=== PATIENT | female | born 1995 | race Caucasian/White ===

== ENCOUNTER 2017-10-12 05:33 | Inpatient (IN) | payer MEDICAID ==
[2017-10-12] MEDS ORDERED: Butorphanol 1 MG/ML SDV IVPUSH PRN (06:00)
[2017-10-12] MEDS ORDERED: Sodium Chloride 0.9% 10 ML Syringe FLUSH PRN (06:00)
[2017-10-12] MEDS ORDERED: Lidocaine 1% 50 ML MDV INJECT PRN (06:00)
[2017-10-12] MEDS ORDERED: Misoprostol 200 MCG Tab PO PRN (06:00)
[2017-10-12] MEDS ORDERED: Carboprost Tromethamine 250 MCG/1 ML Amp IM PRN (06:00)
[2017-10-12] MEDS ORDERED: Nalbuphine 10 MG/1 ML Vial IVPUSH PRN (06:00)
[2017-10-12] MEDS ORDERED: Tranexamic Acid 1,000 MG in Sodium Chloride 0.9% 100 ML IV PRN (06:00)
[2017-10-12] MEDS ORDERED: Water For Irrigation,Sterile 1,000 ML Container IRR PRN (06:00)
[2017-10-12] MEDS ORDERED: Sodium Chloride 0.9% 2.5 ML Syringe FLUSH PRN (06:00)
[2017-10-12] MEDS ORDERED: Methylergonovine 0.2 MG/1 ML Amp IM PRN (06:00)
[2017-10-12] MEDS ORDERED: Oxytocin/0.9 % Sodium Chloride 30 UNIT/500 ML BAG IV SCH (06:00)
[2017-10-12] MEDS ORDERED: Lactated Ringers 1,000 ML IV SCH (06:00)
[2017-10-12] MEDS ORDERED: Ropivacaine 0.2% 2 MG/ML 20 ML SDV ONE (06:51)
--- NOTE | 2017-10-12 07:31 | PCM.PREANE ---
Preanesthetic Assessment - Procedure Proposed Procedure: labor epidural - Anesthesia/Transfusion/Family Hx Anesthesia History: No Prior Anesthesia (except 3 previous epidurals, no GA) Family History of Anesthesia Reaction: No Transfusion History: No Prior Transfusion(s) - Review of Systems Other: Reports: None - Physical Assessment Height: 5 ft 6 in Weight: 73.028 kg ASA Class: 2 Mental Status: Alert & Oriented x3 Airway Class: Mallampati = 1 Dentition: Reports: Normal Dentition Thyro-Mental Finger Breadths: 3 Mouth Opening Finger Breadths: 3 ROM/Head Extension: Full - Lab Values: Laboratory Last Values WBC 12.13 K/uL (4.0-11.0) H 10/12/17 06:17 RBC 3.95 M/uL (4.30-5.90) L 10/12/17 06:17 Hgb 11.5 g/dL (12.0-16.0) L 10/12/17 06:17 Hct 34.1 % (36.0-46.0) L 10/12/17 06:17 MCV 86.3 fL (80.0-98.0) 10/12/17 06:17 MCH 29.1 pg (27.0-32.0) 10/12/17 06:17 MCHC 33.7 g/dL (31.0-37.0) 10/12/17 06:17 RDW Std Deviation 44.0 fl (28.0-62.0) 10/12/17 06:17 RDW Coeff of Peg 14 % (11.0-15.0) 10/12/17 06:17 Plt Count 160 K/uL (150-400) 10/12/17 06:17 MPV 10.30 fL (7.40-12.00) 10/12/17 06:17 Nucleated RBC % 0.0 /100WBC 10/12/17 06:17 Nucleated RBCs # 0 K/uL 10/12/17 06:17 Blood Type O NEGATIVE 10/12/17 06:17 Antibody Screen NEGATIVE 10/12/17 06:17 - Allergies Allergies/Adverse Reactions: Allergies Allergy/AdvReac Type Severity Reaction Status Date / Time No Known Allergies Allergy Verified 05/28/14 13:55 - Blood Blood Available: Yes Product(s) Available: PRBC - Acknowledgements Anesthesia Type Planned: Epidural Pt an Appropriate Candidate for the Planned Anesthesia: Yes Alternatives and Risks of Anesthesia Discussed w Pt/Guardian: Yes Pt/Guardian Understands and Agrees with Anesthesia Plan: Yes PreAnesthesia Questionnaire - Past Health History Medical/Surgical History: Denies 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 [No Known Home Meds] 05/28/14 [History] - CURRENT (IN HOUSE) MEDS Current Meds: Current Medications Butorphanol Tartrate (Stadol) 1 mg IVPUSH Q1H PRN PRN Reason: Pain Carboprost Tromethamine (Hemabate Ds) 250 mcg IM ASDIRECTED PRN PRN Reason: Post Hemorrhage Lactated Ringer's (Ringers, Lactated) 1,000 mls @ 150 mls/hr IV ASDIRECTED JT Last Admin: 10/12/17 06:34 Dose: 999 mls/hr Oxytocin/Sodium Chloride (Oxytocin 30 Unit/500 Ml-Ns) 30 unit in 500 mls @ 999 mls/hr IV TITRATE [facility] Tranexamic Acid 1,000 mg/ (Sodium Chloride) 110 mls @ 660 mls/hr IV ONETIME PRN PRN Reason: Bleeding Lidocaine HCl (Xylocaine 1%) 50 ml INJECT ONETIME PRN PRN Reason: Laceration repair Methylergonovine Maleate (Methergine) 0.2 mg IM ASDIRECTED PRN PRN Reason: Post Hemorrhage Misoprostol (Cytotec) 200 mcg PO ONETIME PRN PRN Reason: Post Hemorrhage Nalbuphine HCl (Nubain) 10 mg IVPUSH Q1H PRN PRN Reason: Pain (severe 7-10) Sodium Chloride (Saline Flush) 10 ml FLUSH ASDIRECTED PRN PRN Reason: Keep Vein Open Sodium Chloride (Saline Flush) 2.5 ml FLUSH ASDIRECTED PRN PRN Reason: Keep Vein Open Sterile Water (Sterile Water For Irrigation) 1,000 ml IRR ASDIRECTED PRN PRN Reason: delivery Discontinued Medications Fentanyl/Bupivacaine HCl (Dysxvjyf-Mpgci-Ut 2 Mcg/Ml-0.125%) Confirm Administered Dose 100 mls @ as directed EP .STK-MED ONE Stop: 10/12/17 06:52 Ropivacaine (Naropin 0.2%) Confirm Administered Dose 20 ml .ROUTE .STK-[facility] ONE Stop: 10/12/17 06:52
--- NOTE | 2017-10-12 09:51 | PCM.DEL ---
L & D Note - General Info Date of Service: 10/12/17 Mother's Due Date: 10/15/17 - Delivery Note Labor: Spontaneous, Augmented by ARM Delivery Outcome: Livebirth Delivery Method: Spontaneous Vaginal Delivery-Single Presentation: Left Occiput Anterior (JEVON) Anesthesia Type: Epidural Episiotomy Type: None Laceration: None Placenta: Intact, Spontaneous Cord: 3 Vessels Resuscitation Needed: No [place]: Suctioned Score 1 min: 9 Score 5 min: 9 Second Stage Interventions: Reports: Pushing, Feet in Foot Rests - General Info Date of Service: 10/12/17 - Patient Data Weight - Most Recent: 73.028 kg Lab Results Last 24 Hours: Laboratory Results - last 24 hr 10/12/17 10/12/17 Range/Units 06:17 06:17 WBC 12.13 H (4.0-11.0) K/uL RBC 3.95 L (4.30-5.90) M/uL Hgb 11.5 L (12.0-16.0) g/dL Hct 34.1 L (36.0-46.0) % MCV 86.3 (80.0-98.0) fL MCH 29.1 (27.0-32.0) pg MCHC 33.7 (31.0-37.0) g/dL RDW Std Deviation 44.0 (28.0-62.0) fl RDW Coeff of Peg 14 (11.0-15.0) % Plt Count 160 (150-400) K/uL MPV 10.30 (7.40-12.00) fL Nucleated RBC % 0.0 /100WBC Nucleated RBCs # 0 K/uL Blood Type O NEGATIVE Antibody Screen NEGATIVE Med Orders - Current: Current Medications Butorphanol Tartrate (Stadol) 1 mg IVPUSH Q1H PRN PRN Reason: Pain Carboprost Tromethamine (Hemabate Ds) 250 mcg IM ASDIRECTED PRN PRN Reason: Post Hemorrhage Lactated Ringer's (Ringers, Lactated) 1,000 mls @ 150 mls/hr IV ASDIRECTED JT Last Admin: 10/12/17 06:34 Dose: 999 mls/hr Oxytocin/Sodium Chloride (Oxytocin 30 Unit/500 Ml-Ns) 30 unit in 500 mls @ 999 mls/hr IV TITRATE JT Tranexamic Acid 1,000 mg/ (Sodium Chloride) 110 mls @ 660 mls/hr IV ONETIME PRN PRN Reason: Bleeding Lidocaine HCl (Xylocaine 1%) 50 ml INJECT ONETIME PRN PRN Reason: Laceration repair Methylergonovine Maleate (Methergine) 0.2 mg IM ASDIRECTED PRN PRN Reason: Post Hemorrhage Misoprostol (Cytotec) 200 mcg PO ONETIME PRN PRN Reason: Post Hemorrhage Nalbuphine HCl (Nubain) 10 mg IVPUSH Q1H PRN PRN Reason: Pain (severe 7-10) Sodium Chloride (Saline Flush) 10 ml FLUSH ASDIRECTED PRN PRN Reason: Keep Vein Open Sodium Chloride (Saline Flush) 2.5 ml FLUSH ASDIRECTED PRN PRN Reason: Keep Vein Open Sterile Water (Sterile Water For Irrigation) 1,000 ml IRR ASDIRECTED PRN PRN Reason: delivery Discontinued Medications Fentanyl/Bupivacaine HCl (Bxyfhiov-Eluhg-Ec 2 Mcg/Ml-0.125%) Confirm Administered Dose 100 mls @ as directed EP .STK-MED ONE Stop: 10/12/17 06:52 Ropivacaine (Naropin 0.2%) Confirm Administered Dose 20 ml .ROUTE .STK-MED ONE Stop: 10/12/17 06:52 - Problem List & Annotations (1) Vaginal delivery SNOMED Code(s): 652544722 Code(s): O80 - ENCOUNTER FOR FULL-TERM UNCOMPLICATED DELIVERY Status: Acute Current Visit: No - Problem List Review Problem List Initiated/Reviewed/Updated: Yes - My Orders Last 24 Hours: My Active Orders 10/12/17 05:52 Patient Status [ADT] Routine Up ad Cindy [RC] ASDIRECTED Vaginal Exam [RC] Click to Edit Vital Signs [RC] PER UNIT ROUTINE 10/12/17 06:00 Butorphanol [Stadol] 1 mg IVPUSH Q1H PRN Carboprost Tromethamine [Hemabate DS] 250 mcg IM ASDIRECTED PRN Lactated Ringers [Ringers, Lactated] 1,000 ml IV ASDIRECTED Lidocaine 1% [Xylocaine 1%] 50 ml INJECT ONETIME PRN Methylergonovine [Methergine] 0.2 mg IM ASDIRECTED PRN Nalbuphine [Nubain] 10 mg IVPUSH Q1H PRN Oxytocin/0.9 % Sodium Chloride [Oxytocin 30 Unit/500 ML-NS] 30 unit in 500 ml IV TITRATE Sodium Chloride 0.9% [Saline Flush] 10 ml FLUSH ASDIRECTED PRN Sodium Chloride 0.9% [Saline Flush] 2.5 ml FLUSH ASDIRECTED PRN Tranexamic Acid [Cyklokapron] 1,000 mg Sodium Chloride 0.9% [Normal Saline] 100 ml IV ONETIME Water For Irrigation,Sterile [Sterile Water for Irrigation] 1,000 ml IRR ASDIRECTED PRN miSOPROStol [Cytotec] 200 mcg PO ONETIME PRN Resuscitation Status Routine 10/12/17 06:01 Patient Status [ADT] Routine Heart Tones [RC] CONTINUOUS Non Stress Test [RC] PER UNIT ROUTINE May Shower [RC] ASDIRECTED Notify Provider [RC] PRN Up ad Cindy [RC] ASDIRECTED Vaginal Exam [RC] PRN Vital Signs [RC] PER UNIT ROUTINE Scalp Electrode [WOMSER] Per Unit Routine Peripheral IV Insertion Adult [OM.PC] Routine
[2017-10-12] MEDS ORDERED: Ibuprofen 400 MG Tab PO PRN (09:54)
[2017-10-12] MEDS ORDERED: Bisacodyl 10 MG Supp RECTAL PRN (09:54)
[2017-10-12] MEDS ORDERED: Witch Hazel Medicated Pads 40/Jar TOP PRN (09:54)
[2017-10-12] MEDS ORDERED: Docusate Sodium 100 MG Cap PO PRN (09:54)
[2017-10-12] MEDS ORDERED: Acetaminophen 500 MG Tab PO PRN (09:54)
[2017-10-12] MEDS ORDERED: Lanolin 100% Cream 7 GM Tube TOP PRN (09:54)
[2017-10-12] MEDS ORDERED: Benzocaine/Menthol 20%-0.5% Spray 78 GM Cannister TOP PRN (09:54)
--- NOTE | 2017-10-12 11:38 | OR ---
SURGEON: Rosemary Cordova M.D. DATE OF PROCEDURE: 10/12/2017 PREOPERATIVE DIAGNOSES: 1. 39 and 4/7 week intrauterine . 2. Active spontaneous labor. POSTOPERATIVE DIAGNOSES: 1. 39 and 4/7 week intrauterine . 2. Active spontaneous labor. PROCEDURE: Term spontaneous vaginal delivery. ANESTHESIA: Epidural. ESTIMATED BLOOD LOSS: Less than 300 mL. FINDINGS: Live born male, scores 8 and 9. Weight is pending at the time of dictation. COMPLICATIONS: None known. DISPOSITION: Mother and baby are in LDRP in good condition. BRIEF HISTORY: This is a 22-year-old female, she is G5, P3-0-1-3. She presents at 39 and 4/7 weeks' gestation. Group B strep negative. Uncomplicated care. Active spontaneous labor, 5-6 cm dilated, she had category 1 heart tones. She received an epidural for pain control. She had artificial rupture of membranes, clear fluid was noted. She progressed to complete. DESCRIPTION OF PROCEDURE: With the patient in dorsal lithotomy position, the patient pushed over 2 contractions to a 5+ station, at which time the head was delivered spontaneously and atraumatically over the perineum with support. There was a nuchal cord, however, was able to deliver the infant through the nuchal cord and the anterior and posterior shoulders were delivered without difficulty. The nuchal cord was reduced. The was bulb suctioned by nose and mouth and handed to the mother in the presence of nursing delivery. The is a liveborn male, scores 8 and 9. Weight is pending at the time of dictation. After the cord had ceased to pulsate, it was doubly clamped and cut. Cord blood was collected for cord ABGs as well as routine cord blood sampling. The Pitocin was initiated after delivery of the infant to assist with delivery of the placenta, which was delivered spontaneously. [place] intact with 3 vessels. Upon inspection of the pelvis and perineum, there were no periurethral, vaginal sidewall, cervical, rectal, or perineal lacerations. EBL was less than 300 mL. There were no known complications. Mother and baby are in LDRP in good condition. ZACK / NESHA /[id number]
[2017-10-12] MEDS: Ibuprofen 800 MG Tab PO PRN ×2 (16:12→22:06)
[2017-10-12] MEDS: oxyCODONE 5 MG Tab PO PRN (17:51)
[2017-10-12] MEDS: Acetaminophen 500 MG Tab PO PRN (17:52)
--- NOTE | 2017-10-12 21:35 | PCM.POSTAN ---
POST ANESTHESIA ASSESSMENT - MENTAL STATUS Mental Status: Alert - RESPIRATORY Respiratory Status: Respiratory Rate WNL - CARDIOVASCULAR CV Status: Pulse Rate WNL - GASTROINTESTINAL GI Status: No Symptoms - POST OP HYDRATION Hydration Status: Adequate & Stable
--- NOTE | 2017-10-12 21:36 | PCM48HPAN ---
Post Anesthesia Note - EVALUATION WITHIN 48HRS OF ANESTHETIC Vital Signs in Normal Range: Yes Patient Participated in Evaluation: Yes Respiratory Function Stable: Yes Airway Patent: Yes Cardiovascular Function Stable: Yes Hydration Status Stable: Yes Pain Control Satisfactory: Yes Nausea and Vomiting Control Satisfactory: Yes Mental Status Recovered: Yes Resp Rate: 18
[2017-10-13] MEDS: oxyCODONE 5 MG Tab PO PRN (05:21)
[2017-10-13] MEDS: Acetaminophen 500 MG Tab PO PRN (05:22)
[2017-10-13 07:16] VITALS: BP 112/78
--- NOTE | 2017-10-13 08:30 | PCM.PNPP ---
- General Info Date of Service: 10/13/17 Functional Status: Reports: Pain Controlled (using oxycodone for cramping pain, Ibuprofen not working.), Tolerating Diet, Ambulating, Urinating - Review of Systems General: Reports: No Symptoms HEENT: Reports: No Symptoms Pulmonary: Reports: No Symptoms Cardiovascular: Reports: No Symptoms Gastrointestinal: Reports: No Symptoms Genitourinary: Reports: No Symptoms Musculoskeletal: Reports: No Symptoms Skin: Reports: No Symptoms Neurological: Reports: No Symptoms Psychiatric: Reports: No Symptoms - General Info Date of Service: 10/13/17 - Patient Data Vital Signs - Most Recent: Last Vital Signs Temp 36.6 C 10/13/17 07:15 Pulse 77 10/13/17 07:15 Resp 18 10/13/17 07:15 BP 112/78 10/13/17 07:15 Pulse Ox 97 10/13/17 07:15 Weight - Most Recent: 73.028 kg I&O - Last 24 Hours: Intake & Output 10/12/17 10/13/17 10/13/17 22:59 06:59 14:59 Intake Total 2 Balance 2 Lab Results - Last 24 Hours: Laboratory Results - last 24 hr 10/12/17 10/12/17 10/13/17 Range/Units 09:39 10:44 05:22 Hgb 12.0 (12.0-16.0) g/dL Hct 37.2 (36.0-46.0) % Cord VBG pH 7.336 (7.25-7.45) Cord VBG Base Excess -2 (-10--2) Screen NEGATIVE (NEGATIVE) RhIG Candidate? YES Rhogam Indicated YES, BABY RH POS H Med Orders - Current: Current Medications Acetaminophen (Tylenol Extra Strength) 500 mg PO Q4H PRN PRN Reason: Pain Last Admin: 10/13/17 05:22 Dose: 500 mg Acetaminophen (Tylenol Extra Strength) 1,000 mg PO Q4H PRN PRN Reason: Pain Benzocaine/Menthol (Dermoplast Pain Relief 20%-0.5% [place]) 78 gm TOP ASDIRECTED PRN PRN Reason: Perineal Comfort Measure Bisacodyl (Dulcolax) 10 mg RECTAL ONETIME PRN PRN Reason: Constipation Docusate Sodium (Colace) 100 mg PO BID PRN PRN Reason: Constipation Emollient Ointment (Lansinoh Hpa) 0 gm TOP ASDIRECTED PRN PRN Reason: Sore Nipples Ibuprofen (Motrin) 400 mg PO Q4H PRN PRN Reason: Pain Ibuprofen (Motrin) 800 mg PO Q6H PRN PRN Reason: Pain Last Admin: 10/12/17 22:06 Dose: 800 mg Oxycodone HCl (Oxycodone) 5 mg PO Q2H PRN PRN Reason: Pain (moderate 4-6) Last Admin: 10/13/17 05:21 Dose: 5 mg Witch Holly (Tucks) 1 pad TOP ASDIRECTED PRN PRN Reason: comfort care Discontinued Medications Butorphanol Tartrate (Stadol) 1 mg IVPUSH Q1H PRN PRN Reason: Pain Carboprost Tromethamine (Hemabate Ds) 250 mcg IM ASDIRECTED PRN PRN Reason: Post Hemorrhage Lactated Ringer's (Ringers, Lactated) 1,000 mls @ 150 mls/hr IV ASDIRECTED JT Last Infusion: 10/12/17 07:40 Dose: Infused Oxytocin/Sodium Chloride (Oxytocin 30 Unit/500 Ml-Ns) 30 unit in 500 mls @ 999 mls/hr IV TITRATE [facility] Last Admin: 10/12/17 09:42 Dose: 500 mls/hr Tranexamic Acid 1,000 mg/ (Sodium Chloride) 110 mls @ 660 mls/hr IV ONETIME PRN PRN Reason: Bleeding Fentanyl/Bupivacaine HCl (Mvlnbzou-Omkby-Fy 2 Mcg/Ml-0.125%) Confirm Administered Dose 100 mls @ as directed EP .STK-MED ONE Stop: 10/12/17 06:52 Lidocaine HCl (Xylocaine 1%) 50 ml INJECT ONETIME PRN PRN Reason: Laceration repair Methylergonovine Maleate (Methergine) 0.2 mg IM ASDIRECTED PRN PRN Reason: Post Hemorrhage Misoprostol (Cytotec) 200 mcg PO ONETIME PRN PRN Reason: Post Hemorrhage Nalbuphine HCl (Nubain) 10 mg IVPUSH Q1H PRN PRN Reason: Pain (severe 7-10) Ropivacaine (Naropin 0.2%) Confirm Administered Dose 20 ml .ROUTE .STK-MED ONE Stop: 10/12/17 06:52 Sodium Chloride (Saline Flush) 10 ml FLUSH ASDIRECTED PRN PRN Reason: Keep Vein Open Sodium Chloride (Saline Flush) 2.5 ml FLUSH ASDIRECTED PRN PRN Reason: Keep Vein Open Sterile Water (Sterile Water For Irrigation) 1,000 ml IRR ASDIRECTED PRN PRN Reason: delivery - Interaction Infant Disposition, : [place] in Room with Family Interaction: Holding Infant Infant Feeding: Breastfed ; Nursed Well Support Person: Significant Other - Recovery Exam Fundal Tone: Firm Fundal Level: 1 Fingerbreadths Below Umbilicus Fundal Placement: Midline Lochia Amount: Scant Lochia Color: Rubra/Red Perineum Description: Intact, Minimal Bruising/Swelling Episiotomy/Laceration: None Bladder Status: Voiding - Exam General: Alert, Oriented HEENT: Pupils Equal Neck: Supple Lungs: Clear to Auscultation GI/Abdominal Exam: Soft, Non-Tender, No Organomegaly, No Distention, No Mass Extremities: Normal Inspection, Non-Tender, No Pedal Edema Skin: Warm, Dry, Intact Neurological: No New Focal Deficit Psy/Mental Status: Alert, Normal Affect, Normal Mood - Problem List & Annotations (1) Vaginal delivery SNOMED Code(s): 702678288 Code(s): O80 - ENCOUNTER FOR FULL-TERM UNCOMPLICATED DELIVERY Status: Acute Current Visit: No - Problem List Review Problem List Initiated/Reviewed/Updated: Yes - My Orders Last 24 Hours: My Active Orders 10/12/17 09:54 Patient Status [ADT] Routine May Shower [RC] ASDIRECTED Up ad Cindy [RC] ASDIRECTED Vital Signs [RC] PER UNIT ROUTINE Acetaminophen [Tylenol Extra Strength] 1,000 mg PO Q4H PRN Acetaminophen [Tylenol Extra Strength] 500 mg PO Q4H PRN Benzocaine/Menthol [Dermoplast Pain Relief 20%-0.5% [place]] 78 gm TOP ASDIRECTED PRN Bisacodyl [Dulcolax] 10 mg RECTAL ONETIME PRN Docusate Sodium [Colace] 100 mg PO BID PRN Ibuprofen [Motrin] 400 mg PO Q4H PRN Ibuprofen [Motrin] 800 mg PO Q6H PRN Lanolin [Lansinoh HPA] See Dose Instructions TOP ASDIRECTED PRN [place] [Tucks] 1 pad TOP ASDIRECTED PRN Assess Lochia [WOMSER] Per Unit Routine Assess Uterine Involution [WOMSER] Per Unit Routine Perineal Care [OM.PC] Per Unit Routine Peripheral IV Discontinue [OM.PC] Routine Resuscitation Status Routine 10/12/17 17:36 oxyCODONE 5 mg PO Q2H PRN 10/12/17 Lunch Regular Diet [DIET] 10/13/17 09:45 BLOOD GAS ARTERIAL UMBILICAL [BG] Urgent - Assessment Assessment:: PPD#! after , having cramping requiring oxycodone, otherwise doing well, well, would like to go home later today. - Plan Plan:: Dismiss to home today, Discharge instructions given.
[2017-10-13] MEDS: Ibuprofen 800 MG Tab PO PRN (15:16)
== END 2017-10-13 15:45 | disposition home or self-care (01) | DRG 775 ==
LOC: MW.OBCHECK 05:33 → MW.OB 05:59 → MW.OBCHECK 06:01 → MW.OB 06:13 → OBSVTOIN 09:54 → MW.OB 15:00
PROVIDERS: ADMIT Obstetrics & Gynecology; ATTEND Obstetrics & Gynecology
PROC: 10E0XZZ Delivery of Products of Conception, External Approach (ICD-10-PCS; principal; 2017-10-12)
PROC: 10907ZC Drainage of Amniotic Fluid, Therapeutic from Products of Conception, Via Natural or Artificial Opening (ICD-10-PCS; 2017-10-12)
DX: O80 Encounter for full-term uncomplicated delivery (principal); Z3A.39 39 weeks gestation of pregnancy; Z37.0 Single live birth
CPT/HCPCS: 36415; 51702; 59025; 59409; 82803; 85014; 85018; 85027; 85460; 86850; 86900; 86901; A9270-GY; J2590; J2792; J2795; J7120

== ENCOUNTER 2021-09-06 11:52 | Inpatient (IN) | payer MEDICAID ==
[2021-09-06] MEDS ORDERED: Oxytocin/0.9 % Sodium Chloride 30 UNIT/500 ML BAG IV SCH ×3 (13:00→20:00)
[2021-09-06] MEDS ORDERED: Carboprost Tromethamine 250 MCG/1 ML Amp IM PRN (13:00)
[2021-09-06] MEDS ORDERED: Methylergonovine 0.2 MG/1 ML Amp IM PRN (13:00)
[2021-09-06] MEDS ORDERED: Butorphanol 1 MG/ML SDV IVPUSH PRN (13:00)
[2021-09-06] MEDS ORDERED: Water For Irrigation,Sterile 1,000 ML Container IRR PRN (13:00)
[2021-09-06] MEDS ORDERED: Sodium Chloride 0.9% 2.5 ML Syringe FLUSH PRN ×3 (13:00→22:16)
[2021-09-06] MEDS ORDERED: Sodium Chloride 0.9% 10 ML Syringe FLUSH PRN ×3 (13:00→22:16)
[2021-09-06] MEDS ORDERED: Misoprostol 200 MCG Tab PO PRN (13:00)
[2021-09-06] MEDS ORDERED: Tranexamic Acid 1,000 MG in Sodium Chloride 0.9% 100 ML IV PRN (13:00)
[2021-09-06] MEDS ORDERED: Sodium Chloride 0.9% 20 ML SDV IV PRN ×2 (13:00→19:56)
[2021-09-06] MEDS ORDERED: Lidocaine 1% 50 ML MDV INJECT PRN (13:00)
[2021-09-06] MEDS ORDERED: Terbutaline 1 MG/ML SDV SUBCUT PRN (13:02)
[2021-09-06] MEDS: Lactated Ringers 1,000 ML IV SCH ×3 (13:50→19:15)
[2021-09-06] MEDS ORDERED: Ondansetron 4 MG/2 ML SDV IVPUSH PRN ×2 (14:31→22:22)
[2021-09-06] MEDS ORDERED: Bupivacaine 0.25% 10 ML SDV ONE (18:42)
[2021-09-06] MEDS ORDERED: Ropivacaine 0.5% 5 MG/ML 30 ML SDV ONE ×2 (18:43→21:03)
[2021-09-06] MEDS ORDERED: ePHEDrine 50 MG/ML SDV IVPUSH PRN (18:49)
[2021-09-06] MEDS ORDERED: Ropivacaine HCl/PF 400 MG in Premix Bag 1 BAG EPIDUR SCH (19:00)
[2021-09-06] MEDS ORDERED: Oxytocin 10 Units/1 ML SDV ONE (19:16)
[2021-09-06] MEDS ORDERED: Ondansetron 4 MG/2 ML SDV ONE (19:16)
[2021-09-06] MEDS ORDERED: ceFAZolin 1 GM Vial ONE (19:17)
[2021-09-06] MEDS ORDERED: Water For Injection, Sterile 20 ML ONE (19:17)
[2021-09-06] MEDS ORDERED: Lidocaine 2% with EPINEPHrine 1:200,000 20 ML SDV ONE ×2 (19:19→19:44)
[2021-09-06] MEDS ORDERED: Azithromycin 500 MG Vial ONE (19:36)
[2021-09-06] MEDS ORDERED: Famotidine 20 MG/2 ML SDV ONE (19:46)
[2021-09-06] MEDS ORDERED: Citric Acid/Sodium Citrate Solution 30 ML Cup ONE (19:46)
[2021-09-06] MEDS ORDERED: Famotidine 20 MG/2 ML SDV IVPUSH ONE (19:52)
[2021-09-06] MEDS ORDERED: Citric Acid/Sodium Citrate Solution 30 ML Cup PO ONE (19:56)
[2021-09-06] MEDS ORDERED: ceFAZolin 2 GM in Premix Bag 1 BAG IV ONE (20:01)
[2021-09-06] MEDS ORDERED: Dexmedetomidine 200 MCG/2 ML SDV ONE (20:11)
[2021-09-06] MEDS ORDERED: Water For Injection, Sterile 40 ML ONE (21:01)
[2021-09-06] MEDS ORDERED: Morphine PF 10 MG/10 ML SDV ONE (21:06)
[2021-09-06] MEDS ORDERED: Octyl 2-Cyanoacrylate 1 Tube ONE (21:10)
[2021-09-06] MEDS ORDERED: Oxytocin 10 Units/1 ML SDV IM PRN (22:08)
[2021-09-06] MEDS ORDERED: Lanolin 100% Cream 7 GM Tube TOP PRN (22:08)
[2021-09-06] MEDS ORDERED: Bisacodyl 10 MG Supp RECTAL PRN (22:08)
[2021-09-06] MEDS ORDERED: Misoprostol 200 MCG Tab RECTAL PRN (22:08)
[2021-09-06] MEDS ORDERED: Lactated Ringers 1,000 ML IV SCH (22:15)
[2021-09-06] MEDS ORDERED: oxyCODONE 5 MG Tab PO PRN (22:16)
[2021-09-06] MEDS ORDERED: Naloxone 0.4 MG/ML SDV IVPUSH PRN (22:22)
[2021-09-06] MEDS ORDERED: fentaNYL 100 MCG/2 ML SDV IVPUSH PRN (22:22)
[2021-09-06] MEDS ORDERED: diphenhydrAMINE 50 MG/ML SDV IVPUSH PRN (22:22)
[2021-09-06] MEDS ORDERED: Nalbuphine HCl 10 MG/ 1ML Amp IVPUSH PRN (22:24)
[2021-09-06] MEDS: Acetaminophen 500 MG Tab PO SCH (23:05)
[2021-09-07 01:35] LABS: CARBON DIOXIDE,CO2 23.7 mmol/L (21.0-32.0); POTASSIUM,K 3.9 mmol/L (3.5-5.1)
[2021-09-07] MEDS: Ketorolac 30 MG/ML SDV IVPUSH SCH ×4 (02:55→21:23)
[2021-09-07] MEDS: Acetaminophen 500 MG Tab PO SCH ×3 (06:27→17:49)
[2021-09-07] MEDS: Docusate Sodium 100 MG Cap PO SCH ×2 (08:53→21:26)
[2021-09-07] MEDS: Simethicone 80 MG Tab.Chew PO SCH ×3 (11:52→21:25)
[2021-09-08] MEDS: Acetaminophen 500 MG Tab PO SCH ×3 (00:14→13:50)
[2021-09-08] MEDS ORDERED: Ketorolac 30 MG/ML SDV ONE (04:05)
[2021-09-08] MEDS: Ketorolac 30 MG/ML SDV IVPUSH SCH (04:11)
[2021-09-08] MEDS: Simethicone 80 MG Tab.Chew PO SCH ×2 (06:46→13:55)
[2021-09-08] MEDS ORDERED: Ketorolac 10 MG Tab PO SCH (10:00)
[2021-09-08 11:37] VITALS: BP 112/69; PULSE 80
[2021-09-08] MEDS: Docusate Sodium 100 MG Cap PO SCH (13:47)
== END 2021-09-08 16:51 | disposition home or self-care (01) | DRG 786 ==
LOC: MW.OBCHECK 11:52 → MW.OB 11:55 → MW.OBCHECK 12:59 → MW.OB 13:00 → OBSVTOIN 20:22 → MW.OB 09-07
PROVIDERS: ADMIT Obstetrics & Gynecology; ATTEND Obstetrics & Gynecology
PROC: 10D00Z1 Extraction of Products of Conception, Low, Open Approach (ICD-10-PCS; principal; 2021-09-06)
PROC: 3E0R3BZ Introduction of Anesthetic Agent into Spinal Canal, Percutaneous Approach (ICD-10-PCS; 2021-09-06)
PROC: 00HU33Z Insertion of Infusion Device into Spinal Canal, Percutaneous Approach (ICD-10-PCS; 2021-09-06)
DX: O42.92 Full-term premature rupture of membranes, unspecified as to length of time between rupture and onset of labor (principal); O45.93 Premature separation of placenta, unspecified, third trimester; Z37.0 Single live birth; Z3A.39 39 weeks gestation of pregnancy; Z20.822 Contact with and (suspected) exposure to COVID-19
CPT/HCPCS: 01967; 36415; 51702; 59025; 64488; 80053; 80305-QW; 84112; 85014; 85018; 85027; 85384; 85460; 85610; 85730; 86592; A9270-GY; J0456; J0690; J1885; J2274; J2405; J2590; J2790; J2795; J3490; J7120; U0002

== ENCOUNTER 2021-09-15 17:40 | Emergency (ER) | payer MEDICAID ==
[2021-09-15] MEDS ORDERED: Cephalexin 500 MG Cap PO ONE (19:32)
[2021-09-15 19:33] LABS: CARBON DIOXIDE,CO2 20.9 mmol/L (21.0-32.0); POTASSIUM,K 3.8 mmol/L (3.5-5.1)
[2021-09-15] MEDS ORDERED: Sodium Chloride 0.9% 1,000 ML IV STA (19:41)
[2021-09-15 20:23] LABS: CORONAVIRUS COVID-19 NAA NEGATIVE (NEGATIVE); INFLUENZA A NAA NEGATIVE (NEGATIVE); INFLUENZA B NAA NEGATIVE (NEGATIVE)
[2021-09-15 20:59] VITALS: BP 100/68; PULSE 99
== END 2021-09-15 20:59 | disposition home or self-care (01) ==
LOC: MW.ED 17:40
DX: O91.22 Nonpurulent mastitis associated with the puerperium (principal); Z79.899 Other long term (current) drug therapy; Z20.822 Contact with and (suspected) exposure to COVID-19
CPT/HCPCS: 0240U; 36415; 71045; 80053; 81001; 85025; 87086; 93005; 96360; 99284; A9270; J7030; 93010; 99283

== ENCOUNTER 2022-04-11 10:14 | Emergency (ER) | payer MEDICAID ==
[2022-04-11] MEDS ORDERED: Ondansetron 4 MG/2 ML SDV IVPUSH STA (10:33)
[2022-04-11] MEDS ORDERED: Sodium Chloride 0.9% 1,000 ML IV STA (10:33)
[2022-04-11 11:25] LABS: CARBON DIOXIDE,CO2 23.1 mmol/L (21.0-32.0); POTASSIUM,K 3.5 mmol/L (3.5-5.1)
[2022-04-11] MEDS ORDERED: Morphine 4 MG/ML Syringe IVPUSH STA (11:47)
[2022-04-11 11:51] LABS: CORONAVIRUS COVID-19 NAA NEGATIVE (NEGATIVE); INFLUENZA A NAA NEGATIVE (NEGATIVE); INFLUENZA B NAA NEGATIVE (NEGATIVE)
[2022-04-11] MEDS ORDERED: Iopamidol 755 MG/ML 500 ML Multipack Bottle IVPUSH ONE (12:09)
[2022-04-11 13:54] VITALS: BP 101/52; PULSE 112
== END 2022-04-11 13:49 | disposition home or self-care (01) ==
LOC: MW.ED 10:14
DX: K52.9 Noninfective gastroenteritis and colitis, unspecified (principal); R00.0 Tachycardia, unspecified; Z20.822 Contact with and (suspected) exposure to COVID-19
CPT/HCPCS: 0240U; 36415; 74177; 80053; 80305; 81001; 83605; 83690; 84443; 84702; 85025; 87086; 93005; 96361; 96374; 96375; 99284; J2270; J2405; J7030; Q9967; 93010

== ENCOUNTER 2022-04-25 08:04 | Emergency (ER) | payer MEDICAID ==
[2022-04-25] MEDS ORDERED: methylPREDNISolone Sodium Succinate 125 MG/2 ML SDV IVPUSH ONE (08:17)
[2022-04-25] MEDS ORDERED: EPINEPHrine 1 MG/1 ML Amp IM ONE (08:17)
[2022-04-25] MEDS ORDERED: diphenhydrAMINE 50 MG/ML SDV IVPUSH STA (08:17)
[2022-04-25 08:18] VITALS: BP 125/96; PULSE 95
[2022-04-25] MEDS ORDERED: Sodium Chloride 0.9% 1,000 ML IV SCH (08:30)
== END 2022-04-25 11:01 | disposition home or self-care (01) ==
LOC: MW.ED 08:04
DX: T78.2XXA Anaphylactic shock, unspecified, initial encounter (principal)
CPT/HCPCS: 96361; 96372; 96374; 96375; 99282-25; 99284; J0171; J1200; J2930; J7030

== ENCOUNTER 2022-09-20 05:35 | Emergency (ER) | payer MEDICAID ==
[2022-09-20] MEDS ORDERED: EPINEPHrine 1 MG/1 ML Amp ONE (05:49)
[2022-09-20] MEDS ORDERED: Famotidine 20 MG/2 ML SDV IVPUSH ONE (05:49)
[2022-09-20] MEDS ORDERED: EPINEPHrine 1 MG/1 ML Amp IM ONE (05:49)
[2022-09-20] MEDS ORDERED: diphenhydrAMINE 50 MG/ML SDV IVPUSH ONE (05:49)
[2022-09-20] MEDS ORDERED: methylPREDNISolone Sodium Succinate 125 MG/2 ML SDV IVPUSH ONE (05:49)
[2022-09-20] MEDS ORDERED: Tranexamic Acid 1,000 MG in Sodium Chloride 0.9% 100 ML IV ONE (07:28)
[2022-09-20 09:18] VITALS: BP 107/66; PULSE 75
== END 2022-09-20 09:17 | disposition home or self-care (01) ==
LOC: MW.ED 05:35
DX: T78.3XXA Angioneurotic edema, initial encounter (principal)
CPT/HCPCS: 96372; 96374; 96375; 99283; J0171; J1200; J2930; J3490; 99284